=== PATIENT | female | born 1950 | race Caucasian/White ===

== ENCOUNTER 2016-09-19 10:52 | Emergency (ER) | payer OTHER, MEDICARE ==
[2016-09-19] MEDS ORDERED: NS 0.9% 1000 ML* 2,000 ML IV ONE (12:49)
[2016-09-19 13:21] LABS: Hematocrit 40 % (35-47); Hemoglobin 13.2 g/dl (12.0-16.0); Mean Corpuscular HGB Conc 33 g/dl (31-36); Mean Corpuscular Hemoglobin 28 pg (27-31); Mean Corpuscular Volume 85 fL (80-97); Mean Platelet Volume 9 um3 (7.4-10.4); Red Blood Count 4.75 10^6/ul (4.0-5.4); Red Cell Distribution Width 16 % (10.5-15); White Blood Count 7.4 10^3/ul (3.5-10.8)
[2016-09-19 13:34] LABS: ALT 13 U/L (7-52); AST 16 U/L (13-39); Albumin 4.4 g/dL (3.2-5.2); Alkaline Phosphatase 45 U/L (34-104); Anion Gap 8 mmol/L (2-11); BUN/Creatinine Ratio 24.1 (8-20); Blood Urea Nitrogen 20 mg/dL (6-24); C Reactive Protein < 1.00 mg/L (< 5.00); CO2 Carbon Dioxide 24 mmol/L (22-32); Chloride 104 mmol/L (101-111); EGFR African American 88.5 (>60); EGFR Non-African American 68.8 (>60); Glucose 96 mg/dL (70-100); Magnesium 1.9 mg/dL (1.9-2.7); Potassium 3.7 mmol/L (3.5-5.0); Sodium 136 mmol/L (133-145); Total Protein 7.4 g/dL (6.4-8.9)
[2016-09-19] MEDS ORDERED: Ondansetron INJ* 2 MG/ML VIAL IV ONE (13:42)
[2016-09-19] MEDS ORDERED: Meclizine TAB* 12.5 MG PO ONE (13:42)
[2016-09-19 13:48] LABS: TSH (Thyroid Stimulating Horm) 1.17 mcIU/mL (0.34-5.60)
--- NOTE | 2016-09-19 14:22 | RAD ---
INDICATION: Dizziness. COMPARISON: Comparison is made with a prior CT of the brain from April 26, 2015 and a prior MRI of the brain from August 01, 2016. TECHNIQUE: Contiguous axial sections of the brain were obtained from the skull base to the vertex without contrast. FINDINGS: The ventricles, cisterns and sulci are within normal limits. There are small areas of decreased density in the subcortical and periventricular white matter suggestive of mild chronic small vessel ischemic changes. There is no evidence for hemorrhage. No significant focal osseous normality is seen. There is mild mucosal thickening within the maxillary and ethmoid sinuses suggestive of chronic sinusitis. The mastoid air cells appear clear. IMPRESSION: NO EVIDENCE FOR GROSS ACUTE INFARCT, MASS EFFECT OR HEMORRHAGE.
[2016-09-19] MEDS ORDERED: Ondansetron INJ* 2 MG/ML VIAL ONE (14:32)
[2016-09-19] MEDS ORDERED: Meclizine TAB* 12.5 MG ONE (14:32)
--- NOTE | 2016-09-19 17:07 | ED ---
Jaquan Self Alok, scribed for Jose Gomes MD on 09/19/16 at 1401 . Dizziness - HPI Summary HPI Summary: 65 y/o female presents to the ED for dizziness this morning as well as diarrhea on and off for the past 4 days. The pt states that what began as a bad cold 5 days ago progressed into 4 to 5 bouts of yellow, watery diarrhea per day for the last 4 days until this morning where the pt states she had difficulty ambulating due to dizziness and loss of balance. The pt then contacted her PCP this morning who told her to come to the ED today. The patient states that she has been trying to hydrate as much as possible during the past week but still feels thirsty, though her dizziness has improved somewhat since laying down in the ED. She states this loss of balance and dizziness has happened to her once before when she was sick. The patients last bout of diarrhea was last night and has had little to no appetite today, and has not eaten since yesterday. Pt dizziness worsens when ambulating but denies worsening of dizziness with head movement. The pt denies vomit, abd pain, DOUGLAS, weakness, numbness, or ear pain. PMHx includes HTN, HLD, IDDM, and TMJ. Pt adds that she has a poor memory and is unsure if she was given antibiotics for her cold, but believes she did not. Pt has NKDA. - History Of Current Complaint Chief Complaint: EDGeneral Stated Complaint: UPSET STOMACH,DIZZY Time Seen by Provider: 09/19/16 13:21 Hx Obtained From: Patient Onset/Duration: Still Present, Gradually Timing: Constant Severity Initially: Moderate Severity Currently: Moderate Character: Dizzy Aggravating Factor(s): Other - Ambulating Alleviating Factor(s): Lying Down Associated Signs And Symptoms: Positive: Diarrhea, Unsteady Gait, Decreased Oral Intake. 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 Negative: Abdominal Pain, Vomiting Neurological: Other - Dizziness, Unsteady Gait Negative: Headache, Weakness, Numbness All Other Systems Reviewed And Are Negative: Yes Physical Exam Triage Information Reviewed: Yes Vital Signs On Initial Exam: Initial Vitals Temp Pulse Resp BP Pulse Ox 97.0 F 60 20 185/95 98 09/19/16 10:54 09/19/16 10:54 09/19/16 10:54 09/19/16 10:54 09/19/16 10:54 Vital Signs Reviewed: Yes Appearance: Positive: Well-Appearing, No Pain Distress Skin: Positive: Warm, Skin Color Reflects Adequate Perfusion, Dry Head/Face: Positive: Normal Head/Face Inspection Eyes: Positive: EOMI, MISHEL ENT: Positive: TMs normal, Other - Dry Oral Mucosa Neck: Positive: Supple, Nontender Respiratory/Lung Sounds: Positive: Clear to Auscultation, Breath Sounds Present Cardiovascular: Positive: Other - Heart sounds like a Bigeminy Abdomen Description: Positive: Nontender, Soft Bowel Sounds: Positive: Hypoactive Musculoskeletal: Positive: Normal, Strength/ROM Intact Neurological: Positive: Normal, Sensory/Motor Intact, Alert, Oriented to Person Place, Time, Other - No focal/neruological deficit Psychiatric: Positive: Affect/Mood Appropriate - Landy Coma Scale Coma Scale Total: 15 Diagnostics - Vital Signs Vital Signs Temp Pulse Resp BP Pulse Ox 09/19/16 13:11 97.1 F 60 20 182/90 98 09/19/16 10:54 97.0 F 60 20 185/95 98 - Laboratory Lab Results: Lab Results 09/19/16 09/19/16 09/19/16 Range/Units 13:05 13:05 13:05 WBC 7.4 (3.5-10.8) 10^3/ul RBC 4.75 (4.0-5.4) 10^6/ul Hgb 13.2 (12.0-16.0) g/dl Hct 40 (35-47) % MCV 85 (80-97) fL MCH 28 (27-31) pg MCHC 33 (31-36) g/dl RDW 16 H (10.5-15) % Plt Count 323 (150-450) 10^3/ul MPV 9 (7.4-10.4) um3 Neut % (Auto) 71.7 (38-83) % Lymph % (Auto) 20.4 L (25-47) % [place] % (Auto) 6.1 (1-9) % Eos % (Auto) 0.6 (0-6) % Baso % (Auto) 1.2 (0-2) % Absolute Neuts (auto) 5.3 (1.5-7.7) 10^3/ul Absolute Lymphs (auto) 1.5 (1.0-4.8) 10^3/ul Absolute Monos (auto) 0.5 (0-0.8) 10^3/ul Absolute Eos (auto) 0 (0-0.6) 10^3/ul Absolute Basos (auto) 0.1 (0-0.2) 10^3/ul Absolute Nucleated RBC 0 10^3/ul Nucleated RBC % 0 Sodium 136 (133-145) mmol/L Potassium 3.7 (3.5-5.0) mmol/L Chloride 104 (101-111) mmol/L Carbon Dioxide 24 (22-32) mmol/L Anion Gap 8 (2-11) mmol/L BUN 20 (6-24) mg/dL Creatinine 0.83 (0.51-0.95) mg/dL Est GFR ( Amer) 88.5 (>60) Est GFR (Non-Af Amer) 68.8 (>60) BUN/Creatinine Ratio 24.1 H (8-20) Glucose 96 (70-100) mg/dL Lactic Acid 1.0 (0.5-2.0) mmol/L Calcium 10.0 (8.6-10.3) mg/dL Magnesium 1.9 (1.9-2.7) mg/dL Total Bilirubin 0.50 (0.2-1.0) mg/dL AST 16 (13-39) U/L ALT 13 (7-52) U/L Alkaline Phosphatase 45 (34-104) U/L Troponin I 0.00 (<0.04) ng/mL C-Reactive Protein < 1.00 (< 5.00) mg/L Total Protein 7.4 (6.4-8.9) g/dL Albumin 4.4 (3.2-5.2) g/dL Globulin 3.0 (2-4) g/dL Albumin/Globulin Ratio 1.5 (1-3) TSH Pending Result Diagrams: 09/19/16 13:05 09/19/16 13:05 Lab Statement: Any lab studies that have been ordered have been reviewed, and results considered in the medical decision making process. - CT Brain CT CT Interpretation: Positive (See Comments) - IMPRESSION: NO EVIDENCE FOR GROSS ACUTE INFARCT, MASS EFFECT OR HEMORRHAGE. CT Interpretation Completed By: Radiologist - EKG 1106 Cardiac Rate: NL - 89 bpm EKG Rhythm: Sinus Rhythm EKG Interpretation: Intermintent Ventricular Bigemity. Depressed T-waves in aVL and III. Re-Evaluation - Re-Evaluation First Eval Re-Evaluation Time: 16:43 Dizzy Course/Dx - Course Course Of Treatment: DIZZINESS IMPROVED IN ED. PT HAD MECLIZINE AND IVF IN ED. DISCUSSED RESULTS. PATIENT WISHES TO GO HOME. DISCHARGE HOME STABLE. NO CRITICAL CARE TIME. - Diagnoses Provider Diagnoses: Dizziness, Vertigo, Diarrhea Discharge - Discharge Plan Condition: Stable Disposition: HOME Prescriptions: Meclizine HCl [Meclizine 25] 25 mg PO Q6HR PRN #15 tab PRN Reason: Dizziness Ondansetron ODT TAB* [Zofran 4 MG Odt TAB*] 4 mg PO Q6H PRN #10 tab.odt PRN Reason: Nausea Patient Education Materials: Vertigo (ED), Acute Diarrhea (ED), Dizziness (ED) Referrals: Sadie Martin NP [Primary Care Provider] - Additional Instructions: FOLLOW UP WITH YOUR DOCTOR. RETURN TO THE EMERGENCY DEPARTMENT FOR ANY WORSENING OF YOUR CONDITION; WEAKNESS , NUMBNESS, FEVER, YOU FEEL LIKE PASSING OUT OR QUESTIONS OR CONCERNS. The documentation as recorded by the Jaquan calles Alok accurately reflects the service I personally performed and the decisions made by me, Jose Gomes MD.
[2016-09-19 17:22] VITALS: BP 148/72
== END 2016-09-19 17:22 | disposition home or self-care (01) ==
LOC: ED 10:52
DX: R42 Dizziness and giddiness (principal); R19.7 Diarrhea, unspecified
CPT/HCPCS: 36415; 70450; 80053; 83605; 83735; 83880; 84443; 84484; 85025; 86140; 93005; 96360; 96374; 99283; A9270-GY; J2405

== ENCOUNTER 2020-07-07 14:07 | Observation (INO) ==
[2020-07-07] MEDS ORDERED: NS 0.9% 1000 ml BAG 1,000 ML IV ONE (15:03)
[2020-07-07 15:57] LABS: ABS Basophils 0.1 10^3/ul (0-0.2); ABS Eosinophils 0.2 10^3/ul (0-0.6); ABS Lymphocytes 1.6 10^3/ul (1.0-4.8); ABS Monocytes 0.6 10^3/ul (0-0.8); ABS Neutrophils 4.8 10^3/ul (1.5-7.7); Eosinophil % 2.3 %; Hematocrit 38 % (35-47); Hemoglobin 12.7 g/dL (12.0-16.0); Lymphocyte % 22.4 %; Mean Corpuscular HGB Conc 33 g/dL (31-36); Mean Corpuscular Hemoglobin 30 pg (27-31); Mean Corpuscular Volume 89 fL (80-97); Platelet Count 271 10^3/uL (150-450); Red Blood Count 4.29 10^6 /uL (3.70-4.87); Red Cell Distribution Width 15 % (10-15); White Blood Count 7.3 10^3/uL (3.5-10.8)
[2020-07-07 16:23] LABS: ALT 15 U/L (7-52); AST 19 U/L (13-39); Albumin 4.2 g/dL (3.2-5.2); Albumin/Globulin Ratio 1.8 (1-3); Alkaline Phosphatase 48 U/L (34-104); Anion Gap 6 mmol/L (2-11); BUN/Creatinine Ratio 30.9 (8-20); Blood Urea Nitrogen 25 mg/dL (6-24); C Reactive Protein < 1.00 mg/L (<8.01); CO2 Carbon Dioxide 30 mmol/L (22-32); Calcium 10.1 mg/dL (8.6-10.3); Chloride 102 mmol/L (101-111); EGFR African American 84.6 (>60); EGFR Non-African American 69.9 (>60); Globulin 2.3 g/dL (2-4); Glucose 87 mg/dL (70-100); INR 1.01 (0.82-1.09); Potassium 3.8 mmol/L (3.5-5.0); Sodium 138 mmol/L (135-145); Total Protein 6.5 g/dL (6.4-8.9)
[2020-07-07 16:24] LABS: Troponin I 0.01 ng/mL (<0.03)
[2020-07-07] MEDS ORDERED: Iodixanol (CONTRAST) 320 MG/ML 100 ML SDV IV ONE (16:26)
[2020-07-07] MEDS ORDERED: Al Hydrox/Mg Hydrox/Simet LIQ 30 ML UDC PO PRN (17:13)
[2020-07-07] MEDS ORDERED: Dextrose 50% Syringe 50 ml 25 GM/50 ML SYRINGE IV PUSH PRN (17:25)
[2020-07-07] MEDS ORDERED: Albuterol HFA INHALER 8 gm MDI INH PRN (18:25)
[2020-07-07] MEDS: Heparin 5000 UNITS/ML 1 mL VIAL SUBCUT SCH (23:09)
[2020-07-07 23:27] LABS: Urine Appearance Clear; Urine Bilirubin Negative (Negative); Urine Blood Negative (Negative); Urine Color Yellow; Urine Glucose Negative (Negative); Urine Ketones Negative (Negative); Urine Nitrite Negative (Negative); Urine Protein Negative (Negative); Urine Specific Gravity 1.057 (1.010-1.030); Urine Urobilinogen Negative (Negative)
[2020-07-07 23:29] LABS: Urine Bacteria Absent (Absent); Urine Red Blood Cell Absent (Absent); Urine Squamous Epithelial Cell Present (Absent); Urine White Blood Cell Trace(0-5/hpf) (Absent)
[2020-07-08] MEDS: Heparin 5000 UNITS/ML 1 mL VIAL SUBCUT SCH ×2 (05:51→13:49)
[2020-07-08 07:09] LABS: HDL Cholesterol 66.9 mg/dL
[2020-07-08 15:56] VITALS: BP 158/73
== END 2020-07-08 17:00 | disposition home or self-care (01) ==
LOC: ED 14:07 → MEDTELE 14:07
PROVIDERS: ADMIT Internal Medicine; ATTEND Internal Medicine

== ENCOUNTER 2021-04-16 08:43 | Observation (INO) ==
[2021-04-16 09:51] LABS: ABS Eosinophils 0.1 10^3/ul (0-0.6); ABS Lymphocytes 0.7 10^3/ul (1.0-4.8); ABS Monocytes 0.5 10^3/ul (0-0.8); ABS Neutrophils 4.4 10^3/ul (1.5-7.7); Eosinophil % 1.6 %; Hematocrit 38 % (35-47); Hemoglobin 12.5 g/dL (12.0-16.0); Lymphocyte % 12.4 %; Mean Corpuscular HGB Conc 33 g/dL (31-36); Mean Corpuscular Hemoglobin 30 pg (27-31); Mean Corpuscular Volume 90 fL (80-97); Mean Platelet Volume 7.9 fL (7.4-10.4); Nucleated Red Blood Cells % 0.1; Platelet Count 226 10^3/uL (150-450); Red Blood Count 4.19 10^6 /uL (3.70-4.87); Red Cell Distribution Width 15 % (10-15); White Blood Count 5.7 10^3/uL (3.5-10.8)
[2021-04-16 10:01] LABS: Albumin/Globulin Ratio 1.9 (1-3); Calcium 10.1 mg/dL (8.6-10.3); Globulin 2.1 g/dL (2-4); Magnesium 1.8 mg/dL (1.9-2.7); Potassium 3.5 mmol/L (3.5-5.0); Total Bilirubin 0.3 mg/dL (0.2-1.0); Total Protein 6.1 g/dL (6.4-8.9)
[2021-04-16 10:04] LABS: Troponin I 0.01 ng/mL (<0.03)
[2021-04-16 10:06] LABS: CKMB ng/mL 5.6 ng/mL (0.6-6.3)
[2021-04-16 11:45] LABS: Rapid COVID-19 Molecular Undetected (Undetected)
[2021-04-16] MEDS ORDERED: Magnesium Sulfate 2 gm BAG 2 GM/50 ML BAG IVPB ONE (13:51)
[2021-04-16] MEDS ORDERED: Albuterol HFA INHALER 8 gm MDI INH PRN (13:55)
[2021-04-16] MEDS ORDERED: Metoprolol Tartrate 5 mg VIAL 5 ml VIAL (1 mg/ml) IV PRN (23:46)
[2021-04-17 07:22] LABS: ABS Basophils 0.1 10^3/ul (0-0.2); ABS Eosinophils 0.1 10^3/ul (0-0.6); ABS Lymphocytes 1.4 10^3/ul (1.0-4.8); ABS Monocytes 0.6 10^3/ul (0-0.8); ABS Neutrophils 4.1 10^3/ul (1.5-7.7); Eosinophil % 1.8 %; Hematocrit 38 % (35-47); Hemoglobin 12.7 g/dL (12.0-16.0); Lymphocyte % 22.7 %; Mean Corpuscular HGB Conc 34 g/dL (31-36); Mean Corpuscular Hemoglobin 30 pg (27-31); Mean Corpuscular Volume 89 fL (80-97); Mean Platelet Volume 8.1 fL (7.4-10.4); Platelet Count 247 10^3/uL (150-450); Red Blood Count 4.26 10^6 /uL (3.70-4.87); Red Cell Distribution Width 15 % (10-15); White Blood Count 6.3 10^3/uL (3.5-10.8)
[2021-04-17 07:40] LABS: Calcium 9.9 mg/dL (8.6-10.3); Potassium 3.2 mmol/L (3.5-5.0)
[2021-04-17] MEDS ORDERED: Cholecalciferol (VIT D3) 1,000 unit TAB PO SCH (09:00)
[2021-04-17] MEDS ORDERED: Calcium (OSCAL) 500 mg TAB PO SCH (09:00)
[2021-04-17] MEDS: Potassium Chloride LIQUID 20 MEQ/15 ML LIQUID PO SCH ×2 (10:28→12:42)
[2021-04-17 15:15] VITALS: BP 151/89
== END 2021-04-17 15:12 | disposition home or self-care (01) ==
LOC: EDHOLD 08:43 → ED 08:43 → MEDTELE 17:48
PROVIDERS: ADMIT Internal Medicine; ATTEND Internal Medicine

== ENCOUNTER 2021-10-06 10:07 | Inpatient (IN) ==
[~2021-10-06 10:07] MED LIST: Buffered Lidocaine 1% SYRIN 1 ml INTRADERM ONE; Famotidine IV 10 MG/ML 2 ml VIAL (20 mg) IV ONE; Lactated Ringers 1000 ml BAG 1,000 ML IV SCH
[2021-10-06] MEDS ORDERED: Famotidine IV 10 MG/ML 2 ml VIAL (20 mg) ONE (10:30)
[2021-10-06] MEDS ORDERED: Midazolam 2 mg/2 ml VIAL 1 mg/ml 2 ml VIAL (2 mg) ONE (11:02)
[2021-10-06] MEDS ORDERED: fentaNYL 100 mcg/2 ml 50 MCG/ML VIAL ONE (11:02)
[2021-10-06] MEDS ORDERED: Ondansetron 4 mg VIAL 2 MG/ML 2 ml VIAL ONE (11:40)
[2021-10-06] MEDS ORDERED: Dexamethasone IV 4 MG/ML VIAL 1 ml VIAL ONE (11:40)
[2021-10-06] MEDS ORDERED: Lidocaine 2% PF 5 ML VIAL ONE (11:40)
[2021-10-06] MEDS ORDERED: ROPIVACAINE 5 MG/ML 30 ML BTL (0.5%) ONE ×2 (11:48→12:32)
[2021-10-06] MEDS ORDERED: Morphine 4 MG/ML VIAL (1 ml) IV PRN (13:33)
[2021-10-06] MEDS ORDERED: Prochlorperazine 5 mg/ml 2 ml VIAL (10 mg) IV PRN (13:33)
[2021-10-06] MEDS ORDERED: Naloxone 0.4 mg VIAL 0.4 mg/ml 1 ml VIAL IV PRN (13:33)
[2021-10-06] MEDS ORDERED: fentaNYL 100 mcg/2 ml 50 MCG/ML VIAL IV PRN (13:33)
[2021-10-06] MEDS ORDERED: Phenylephrine IV 10 MG/ML 1 ml VIAL ONE (13:48)
[2021-10-06] MEDS ORDERED: Acetaminophen IV 1 GM/100ML 100 ML IV ONE (13:49)
[2021-10-06] MEDS ORDERED: Magnesium Hydroxide LIQ 30 ML UDC PO PRN (14:47)
[2021-10-06] MEDS ORDERED: Ondansetron ODT 4 mg TAB 4 MG TAB PO PRN (14:47)
[2021-10-06] MEDS ORDERED: Morphine 2 MG/ML SYRINGE IV PRN (14:47)
[2021-10-06] MEDS ORDERED: Lactulose 30 ml UDC PO PRN (14:47)
[2021-10-06] MEDS ORDERED: Ondansetron 4 mg VIAL 2 MG/ML 2 ml VIAL IV PRN (14:47)
[2021-10-06] MEDS ORDERED: Albuterol HFA INHALER 8 gm MDI INH PRN (14:52)
[2021-10-06] MEDS ORDERED: Dextrose 50% Syringe 50 ml 25 GM/50 ML SYRINGE IV PUSH PRN (15:28)
[2021-10-06] MEDS: Lactated Ringers 1000 ml BAG 1,000 ML IV SCH (16:26)
[2021-10-06] MEDS: Magnesium Hydroxide LIQ 30 ML UDC PO SCH (20:15)
[2021-10-06] MEDS: ceFAZolin 1 GM ADVAN 1 GM in NS 0.9% 50 ML 50 ML IVPB SCH (20:15)
[2021-10-06] MEDS ORDERED: Haloperidol 5 mg/ml SDV IV/IM 5 MG/ML AMP IV SLOW PU ONE (20:48)
[2021-10-06] MEDS ORDERED: Haloperidol 5 mg/ml SDV IV/IM 5 MG/ML AMP ONE (20:49)
[2021-10-07] MEDS: Lactated Ringers 1000 ml BAG 1,000 ML IV SCH (00:46)
[2021-10-07] MEDS: ceFAZolin 1 GM ADVAN 1 GM in NS 0.9% 50 ML 50 ML IVPB SCH ×2 (04:22→12:36)
[2021-10-07 06:15] LABS: Hematocrit 32 % (35-47); Hemoglobin 10.9 g/dL (12.0-16.0); Mean Platelet Volume 7.6 fL (7.4-10.4); Platelet Count 220 10^3/uL (150-450)
[2021-10-07 06:41] LABS: Calcium 9.5 mg/dL (8.6-10.3); Potassium 3.9 mmol/L (3.5-5.0); eGFR CKD-EPI 64.9 (>60)
[2021-10-07] MEDS ORDERED: Vitamin THERAPEUTIC TAB PO SCH (09:00)
[2021-10-07] MEDS: Magnesium Hydroxide LIQ 30 ML UDC PO SCH (11:02)
[2021-10-07 11:28] VITALS: BP 164/82
== END 2021-10-07 15:40 | disposition home or self-care (01) | DRG 470 ==
LOC: AA 10:07 → SSU 15:45
PROVIDERS: ADMIT Orthopaedic Surgery Adult Reconstructive Orthopaedic Surgery; ATTEND Orthopaedic Surgery Adult Reconstructive Orthopaedic Surgery

== ENCOUNTER 2022-09-29 02:28 | Inpatient (IN) ==
[2022-09-29 03:01] LABS: ABS Eosinophils 0.2 10^3/uL (0.0-0.5); ABS Monocytes 0.7 10^3/uL (0.0-0.9); ABS Neutrophils 4.8 10^3/uL (1.5-7.6); Eosinophil % 2.4 %; Hematocrit 34.3 % (35-45); Hemoglobin 11.4 g/dL (11.5-14.3); Lymphocyte % 15.4 %; Mean Corpuscular Hemoglobin 26.9 pg (27-33); Mean Corpuscular Hgb Conc 33.2 g/dL (31-36); Platelet Count 253 10^3/uL (150-450); Red Blood Count 4.24 10^6/uL (3.63-4.92); Red Cell Distribution Width 16.9 % (12-17); White Blood Count 6.8 10^3/uL (3.8-11.8)
[2022-09-29 03:15] LABS: Activated Partial Thrombo Time 23.6 seconds (26.0-38.0); INR 1.41 (0.88-1.18)
[2022-09-29 03:46] LABS: Calcium 10.4 mg/dL (8.6-10.3); Creatinine, Serum 1.04 mg/dL (0.51-0.95); HDL Cholesterol 71.8 mg/dL; Potassium 3.3 mmol/L (3.5-5.0); Total Bilirubin 0.3 mg/dL (0.2-1.0); eGFR CKD-EPI 57.1 (>60)
[2022-09-29] MEDS ORDERED: Albuterol HFA INHALER 8 gm MDI INH PRN (05:23)
[2022-09-29] MEDS ORDERED: Labetalol IV 5 MG/ML 20 ml VIAL IV PUSH PRN (05:24)
[2022-09-29] MEDS: Enoxaparin 40 MG/0.4 ML SYR SUBCUT SCH (06:04)
[2022-09-29] MEDS ORDERED: Potassium Chlor 20 meq TAB.ER PO ONE (07:30)
[2022-09-29 08:17] LABS: Urine Appearance Cloudy; Urine Bilirubin Negative (Negative); Urine Blood Negative (Negative); Urine Color Yellow; Urine Glucose Negative (Negative); Urine Ketones Negative (Negative); Urine Nitrite Negative (Negative); Urine Protein Negative (Negative); Urine Urobilinogen Negative (Negative)
[2022-09-29] MEDS: Cholecalciferol (VIT D3) 1,000 unit TAB PO SCH (20:44)
[2022-09-30 06:05] LABS: ABS Basophils 0.1 10^3/uL (0.0-0.1); ABS Eosinophils 0.2 10^3/uL (0.0-0.5); ABS Lymphocytes 0.9 10^3/uL (1.0-4.8); ABS Monocytes 0.7 10^3/uL (0.0-0.9); ABS Neutrophils 4.4 10^3/uL (1.5-7.6); ABS Nucleated RBC 0.01 10^3/ul; Eosinophil % 3.3 %; Hematocrit 33.5 % (35-45); Hemoglobin 11.3 g/dL (11.5-14.3); Lymphocyte % 14.4 %; Mean Corpuscular Hemoglobin 27.1 pg (27-33); Mean Corpuscular Hgb Conc 33.7 g/dL (31-36); Mean Corpuscular Volume 80.3 fL (80-97); Mean Platelet Volume 8.1 fL (7.5-11.2); Nucleated Red Blood Cells % 0.1 /100 WBC (0.0-0.4); Platelet Count 248 10^3/uL (150-450); Red Blood Count 4.17 10^6/uL (3.63-4.92); White Blood Count 6.3 10^3/uL (3.8-11.8)
[2022-09-30 06:33] LABS: Calcium 10.2 mg/dL (8.6-10.3); Creatinine, Serum 0.97 mg/dL (0.51-0.95); Potassium 3.4 mmol/L (3.5-5.0); eGFR CKD-EPI 62.1 (>60)
[2022-09-30] MEDS ORDERED: Potassium Chlor 20 meq TAB.ER PO ONE (07:35)
[2022-09-30] MEDS: Enoxaparin 40 MG/0.4 ML SYR SUBCUT SCH (10:18)
[2022-09-30] MEDS ORDERED: Valproic Acid IV 500 MG in NS 0.9% 100 ml BAG 100 ML IVPB ONE (12:33)
[2022-09-30] MEDS: methylPREDNISolone SOD SUCC 1,000 MG in NS 0.9% 250 ml 250 ML IVPB SCH (15:18)
[2022-09-30] MEDS: Cholecalciferol (VIT D3) 1,000 unit TAB PO SCH (20:11)
[2022-10-01] MEDS: methylPREDNISolone SOD SUCC 1,000 MG in NS 0.9% 250 ml 250 ML IVPB SCH (09:09)
[2022-10-01] MEDS: Cholecalciferol (VIT D3) 1,000 unit TAB PO SCH (21:10)
[2022-10-02 05:40] LABS: ABS Lymphocytes 0.5 10^3/uL (1.0-4.8); ABS Monocytes 0.7 10^3/uL (0.0-0.9); Hematocrit 32.3 % (35-45); Hemoglobin 10.6 g/dL (11.5-14.3); Lymphocyte % 3.2 %; Mean Corpuscular Hemoglobin 26.5 pg (27-33); Mean Corpuscular Hgb Conc 32.8 g/dL (31-36); Mean Corpuscular Volume 80.7 fL (80-97); Mean Platelet Volume 8.3 fL (7.5-11.2); Platelet Count 264 10^3/uL (150-450); Red Cell Distribution Width 16.9 % (12-17); White Blood Count 17.3 10^3/uL (3.8-11.8)
[2022-10-02 05:54] LABS: Calcium 10.3 mg/dL (8.6-10.3); Creatinine, Serum 0.96 mg/dL (0.51-0.95); Potassium 3.6 mmol/L (3.5-5.0); eGFR CKD-EPI 62.9 (>60)
[2022-10-02] MEDS: methylPREDNISolone SOD SUCC 1,000 MG in NS 0.9% 250 ml 250 ML IVPB SCH (09:29)
[2022-10-02] MEDS: Cholecalciferol (VIT D3) 1,000 unit TAB PO SCH (20:56)
[2022-10-03 11:37] VITALS: BP 165/68
== END 2022-10-03 12:27 | DRG 547 ==
LOC: EDHOLD 02:28 → ED 02:28 → SUATTDRO 04:41 → EDHOLD 14:46 → MEDTELE 15:44 → SUATTDRO 10-01 09:26
PROVIDERS: ADMIT Student in an Organized Health Care Education/Training Program; ATTEND Internal Medicine